=== PATIENT | female | born 1980 | race Caucasian/White ===

== ENCOUNTER 2019-12-08 12:08 | Emergency (ER) | payer OTHER ==
[~2019-12-08] VITALS: Ht 170.2 cm; Wt 54.4 kg
[~2019-12-08 12:08] MED LIST: IBUP600 PO; Percocet 5-3251 EACH PO; Valium5 MG PO
[2019-12-08 13:37] LABS: BASOPHILS ABSOLUTE AUTO 0.03 K/mm3 (0.00-0.23); BASOPHILS PERCENT AUTO 1 % (0-2); EOSINOPHILS PERCENT AUTO 0 % (0-6); Hemoglobin 13.7 g/dL (11.5-16.0); IMMATURE GRAN ABSOLUTE AUTO 0.03 K/mm3 (0.00-0.10); IMMATURE GRAN PERCENT AUTO 1 % (0-1); LYMPHOCYTES ABSOLUTE AUTO 2.33 K/mm3 (0.84-5.20); LYMPHOCYTES PERCENT AUTO 56 % (21-46); MONOCYTES ABSOLUTE AUTO 0.32 K/mm3 (0.16-1.47); MONOCYTES PERCENT AUTO 8 % (4-13); Mean Corpuscular HGB 29.9 pg (26.0-34.0); Mean Corpuscular HGB Conc 34.3 g/dL (31.5-36.5); Mean Corpuscular Volume 87 fL (80-100); NEUTROPHILS ABSOLUTE AUTO 1.46 K/mm3 (1.96-9.15); NEUTROPHILS PERCENT AUTO 35 % (41-73); RDW Coefficient Variation 14.6 % (11.7-14.2); RDW Standard Deviation 46.5 fL (35.1-46.3); Red Blood Cell Count 4.58 M/mm3 (3.80-5.20); White Blood Cell Count 4.17 K/mm3 (4.00-11.30)
[2019-12-08 13:38] LABS: Mean Platelet Volume 11.6 fL (9.1-12.4); Platelet Count 132 K/mm3 (150-400)
[2019-12-08 13:46] LABS: Alanine Aminotransfer (ALT/SGP 131 U/L (12-78); Albumin, Blood 4.3 g/dL (3.4-5.0); Albumin/Globulin Ratio 1.1 (0.8-1.8); Alk Phos 153 U/L (50-136); Anion Gap 13 mmol/L (6-16); Aspartate Aminotrans (AST/SGOT 303 U/L (12-37); Beta HCG, Quantitative, Serum <1 mIU/mL (0-3); Blood Urea Nitrogen 6 mg/dL (8-24); Bun/Creatinine Ratio 10.8 (12.0-20.0); CO2, Blood 29 mmol/L (21-32); Calcium, Blood 8.6 mg/dL (8.5-10.1); Chloride, Blood 99 mmol/L (98-108); Creatinine, Blood 0.56 mg/dL (0.40-1.00); Glomerular Filtration Rate >60 (60-); Glucose, Blood 102 mg/dL (70-99); Magnesium, Blood 2.1 mg/dL (1.6-2.4); Potassium, Blood 2.7 mmol/L (3.5-5.5); Sodium, Blood 141 mmol/L (136-145); Total Protein, Blood 8.3 g/dL (6.4-8.2)
[2019-12-08 14:10] LABS: Ethanol (Alcohol), Blood, Med 368 mg/dL
[2019-12-08 14:10] LABS: U Amphetamine Screen Not Detected; U Barbituate Screen Not Detected; U Benzodiazapine Screen Not Detected; U Buprenorphine Screen Not Detected; U Cannabinoids Screen DETECTED; U Cocaine Screen Not Detected; U Methadone Screen Not Detected; U Methamphetamine Screen Not Detected; U Opiates Screen Not Detected; U Oxycodone Screen Not Detected; U Phencyclidine Screen Not Detected; U Propoxyphene Screen Not Detected
[2019-12-08] MEDS ORDERED: Ativan1 MG SL (14:53)
[2019-12-08] MEDS ORDERED: ONDA4ODT SL (14:53)
[2019-12-11 01:10] LABS: HBSAG SCREEN Negative (Negative); HEP A AB, IGM Negative (Negative); HEP B CORE AB, IGM Negative (Negative); HEP C VIRUS AB 0.1 (0.0-0.9)
== END 2019-12-08 17:06 | disposition home or self-care (01) ==
LOC: ER 12:08
PROVIDERS: Emergency Medicine
DX: F10.10 Alcohol abuse, uncomplicated (principal); K75.9 Inflammatory liver disease, unspecified; Z71.41 Alcohol abuse counseling and surveillance of alcoholic; Z91.013 Allergy to seafood; Z79.899 Other long term (current) drug therapy; Z87.891 Personal history of nicotine dependence
CPT/HCPCS: 36415; 80053; 80074; 83735; 84702; 85025; 96365; 96366; 96375; 96376; 99285-25; G0480; J2060; J2405; J3411; J3475; J7030; J7042

== ENCOUNTER 2020-02-04 05:29 | Inpatient (IN) | payer OTHER ==
[~2020-02-04] VITALS: Ht 167.6 cm; Wt 53.2 kg
[~2020-02-04 05:29] MED LIST changes: +Ativan1 MG SL; +ONDA4ODT SL
[2020-02-04 06:55] LABS: BASOPHILS ABSOLUTE AUTO 0.03 K/mm3 (0.00-0.23); BASOPHILS PERCENT AUTO 1 % (0-2); EOSINOPHILS ABSOLUTE AUTO 0.04 K/mm3 (0.00-0.68); EOSINOPHILS PERCENT AUTO 1 % (0-6); Hematocrit 39.8 % (33.0-51.0); Hemoglobin 13.5 g/dL (11.5-16.0); IMMATURE GRAN ABSOLUTE AUTO 0.02 K/mm3 (0.00-0.10); IMMATURE GRAN PERCENT AUTO 0 % (0-1); LYMPHOCYTES ABSOLUTE AUTO 1.98 K/mm3 (0.84-5.20); LYMPHOCYTES PERCENT AUTO 31 % (21-46); MONOCYTES ABSOLUTE AUTO 0.48 K/mm3 (0.16-1.47); MONOCYTES PERCENT AUTO 8 % (4-13); Mean Corpuscular HGB 32.3 pg (26.0-34.0); Mean Corpuscular HGB Conc 33.9 g/dL (31.5-36.5); Mean Corpuscular Volume 95 fL (80-100); Mean Platelet Volume 12.9 fL (9.1-12.4); NEUTROPHILS ABSOLUTE AUTO 3.78 K/mm3 (1.96-9.15); NEUTROPHILS PERCENT AUTO 60 % (41-73); Platelet Count 62 K/mm3 (150-400); RDW Coefficient Variation 13.3 % (11.7-14.2); RDW Standard Deviation 46.9 fL (35.1-46.3); Red Blood Cell Count 4.18 M/mm3 (3.80-5.20); White Blood Cell Count 6.33 K/mm3 (4.00-11.30)
[2020-02-04 07:05] LABS: Source, Urine Clean Catch
[2020-02-04 07:05] LABS: Calcium, Ionized (POC) 1.15 mmol/L (1.10-1.46); Chloride (POC) 98 mmol/L (98-108); Creatinine (POC) 0.5 mg/dL (0.6-1.0); Glucose (ISTAT POC) 106 mg/dL (70-99); Hemoglobin (POC) 14.3 g/dL (12.0-16.0); Potassium (POC) 3.3 mmol/L (3.5-5.5); Sodium (POC) 137 mmol/L (135-148); Total CO2 (POC) 26 mmol/L (21-32)
[2020-02-04 07:12] LABS: Bilirubin, Urine Neg (Neg); Blood, Urine 2+ (Neg); Glucose Qualitative, Urine Neg (Neg); Ketones, Urine Neg (Neg); Leukocyte Esterase, Urine 1+ (Neg); Nitrite, Urine Neg (Neg); Protein, Urine 2+ (Neg); Specific Gravity, Urine 1.005 (1.003-1.022); Urobilinogen, Urine 3+ (Normal)
[2020-02-04 07:12] LABS: Alanine Aminotransfer (ALT/SGP 47 U/L (12-78); Albumin, Blood 3.7 g/dL (3.4-5.0); Albumin/Globulin Ratio 0.9 (0.8-1.8); Alk Phos 181 U/L (50-136); Anion Gap 9 mmol/L (6-16); Aspartate Aminotrans (AST/SGOT 132 U/L (12-37); Bilirubin, Total 3.7 mg/dL (0.1-1.0); Blood Urea Nitrogen 8 mg/dL (8-24); Bun/Creatinine Ratio 15.2 (12.0-20.0); CO2, Blood 26 mmol/L (21-32); Calcium, Blood 9.3 mg/dL (8.5-10.1); Chloride, Blood 102 mmol/L (98-108); Creatinine, Blood 0.53 mg/dL (0.40-1.00); Ethanol (Alcohol), Blood, Med <3 mg/dL; Globulin, Blood 4.2 g/dL (2.2-4.0); Glomerular Filtration Rate >60 (60-); Glucose, Blood 97 mg/dL (70-99); Potassium, Blood 3.2 mmol/L (3.5-5.5); Sodium, Blood 137 mmol/L (136-145); Total Protein, Blood 7.9 g/dL (6.4-8.2)
[2020-02-04 07:20] LABS: Thyroxine (T4) 12.2 ug/dL (4.8-13.9)
[2020-02-04 07:21] LABS: Appearance, Urine Hazy (Clear); Color, Urine Amber (P-Yellow)
[2020-02-04 07:22] LABS: Red Blood Cells, Urine 0-2 /hpf (0-2)
[2020-02-04 07:23] LABS: Bacteria Mod /hpf; Squamous Epithelial Cells Few /hpf (Few)
[2020-02-04 07:25] LABS: Acetaminophen, Random <2.0 ug/mL (10.0-30.0); Salicylate <1.7 mg/dL (2.8-20.0)
[2020-02-04 07:34] LABS: U Amphetamine Screen Not Detected; U Barbituate Screen Not Detected; U Benzodiazapine Screen DETECTED; U Buprenorphine Screen Not Detected; U Cannabinoids Screen DETECTED; U Cocaine Screen Not Detected; U Methadone Screen Not Detected; U Methamphetamine Screen Not Detected; U Opiates Screen Not Detected; U Oxycodone Screen Not Detected; U Phencyclidine Screen Not Detected; U Propoxyphene Screen Not Detected
[2020-02-04 11:03] LABS: International Normalized Ratio 1.08; Prothrombin Time Results 11.5 Sec (9.7-11.5)
[2020-02-04 13:18] LABS: Alanine Aminotransfer (ALT/SGP 56 U/L (12-78); Albumin, Blood 3.1 g/dL (3.4-5.0); Albumin/Globulin Ratio 0.8 (0.8-1.8); Alk Phos 147 U/L (50-136); Aspartate Aminotrans (AST/SGOT 114 U/L (12-37); Bilirubin, Direct 1.7 mg/dL (0.0-0.3); Bilirubin, Indirect 1.2 mg/dL (0.1-0.7); Bilirubin, Total 2.9 mg/dL (0.1-1.0); Total Protein, Blood 7.1 g/dL (6.4-8.2)
[2020-02-04 13:19] LABS: Acetaminophen, Random <2.0 ug/mL (10.0-30.0)
[2020-02-04 13:21] LABS: International Normalized Ratio 1.25; Prothrombin Time Results 13.2 Sec (9.7-11.5)
--- NOTE | 2020-02-04 18:24 | NUR ---
PATIENT TRANSFERED TO UNIT VIA GURNEY FROM ED, NO SIGNS OF ACUTE DISTRESS. PATIENT ABLE TO AMBULATE INDEPENDENTLY TO BED. PATIENT'S SIGNIFICANT OTHER AT BEDSIDE. PATIENT ON ROOM AIR, VSS. PATIENT ENDORSES VISUAL HALLUCINATIONS, SHE REPORTS SEEING A SMALL CHILD IN THE ROOM, DOES NOT APPEAR ALARMED. PATIENT'S SPOUSE ENDORSES THAT THIS IS COMPLETELY OUT OF THE NORM FOR THE PATIENT. PATIENT ENDORSES FEELING BOTHERED THAT SHE HAS BEEN UNABLE TO SLEEP SINCE LAST MONDAY. ENDORSES THAT SHE HASN'T HAD ANY ALCOHOL IN PAST 2 MONTHS, BUT THAT SHE SMOKES 1-2 BOWLS OF MARIJUANA DAILY. PATIENT'S CIWA NEGATIVE AT THIS TIME. APPEARS NEURO INTACT AT THIS TIME. PATIENT ENDORSES THAT SHE HAS HAD A POOR APPETITE FOR WEEKS, HAS LOST WEIGHT. PATIENT ENDORSES THAT SHE HAS NO PREVIOUS PSYCH HISTORY, BUT THAT HER FATHER HAS BIPOLAR. PATIENT ENDORSES SOME BIG LIFE CHANGES IN RECENT YEAR, ENGAGEMENT, SCHOOL PROGRAM AND [place].
--- NOTE | 2020-02-04 20:55 | NUR ---
AMA PT A&O X4 BUT ACTIVELY HAVING VISUAL & AUDIBLE HALLUCINATIONS. PT SEEING & HEARING CATS IN THE RM, COMMENTING ON "AW IT's SO CUTE HOW IT's SITTING THERE LIKE THAT." PT AWARE THAT CAT IS NOT REALLY IN THE RM. PT BECOMING ANXIOUS IN RM, STATING "I NEED TO LEAVE. I JUST NEED TO GET THIS STUFF OFF OF ME & GET OUT OF HERE." PT REPORTS HAVING DIFFICULTY BEING APART FROM [facility], STATING "I NEED TO BE WITH ME [facility]. HE's THE ONLY PERSON THAT'S EVER REALLY BEEN THERE FOR ME, & HE IS THE ONLY PERSON I REALLY TRUST." PT BECOMING FIDGETY & RESTLESS, FURTHER REPORTING "I NEED TO GO OUT & SMOKE. I USUALLY SMOKE 1-2 BOWLS AT NIGHT." PT MEDICATED W/ PRN IV ATIVAN PER EMAR W/ PT LESS RESTLESS, BUT THEN STATING "MY [facility] IS GOING TO COME GET ME & WE'RE GOING TO HIT THE ROAD RIGHT AWAY. IT's GETTING LATE. WE NEED TO GET HOME. I'M WORRIED ABOUT MY CATS. I NEED TO FEED THEM." CALL TO QUILL BUNCHER AND SORTER NATHALIE TO REPORT PT WISH TO LEAVE AMA, & PT ACTIVELY HALLUCINATING. PT STATES UNDERSTANDING OF RISKS OF LEAVING AMA, BUT REPORTS SHE NEEDS TO LEAVE. TELE PYSCH CONSULT REVIEWED BY QUILL BUNCHER AND SORTER W/ QUILL BUNCHER AND SORTER STATEMENT OF NO 2MD HOLD. PT REPORTS CALLING [facility] & [facility]ANCE COMING TO PICK HER UP. PT THEN LEFT AMA, ESCORTED OUT BY PCT IN WHEELCHAIR @ AP[employer]OX 2030.
== END 2020-02-04 20:30 | disposition left against medical advice (07) | DRG 894 ==
LOC: ER 05:29 → ERHOLD 05:30 → PCU 17:05
PROVIDERS: Emergency Medicine; ADMIT Hospitalist
DX: F10.139 Alcohol abuse with withdrawal, unspecified (principal); G92 Toxic encephalopathy; N39.0 Urinary tract infection, site not specified; E87.6 Hypokalemia; D69.6 Thrombocytopenia, unspecified; K70.30 Alcoholic cirrhosis of liver without ascites; Z53.29 Procedure and treatment not carried out because of patient's decision for other reasons; Z79.899 Other long term (current) drug therapy; Z87.891 Personal history of nicotine dependence
CPT/HCPCS: 36415; 80047; 80053; 80076; 81001; 81025; 82140; 83690; 83735; 84436; 84443; 85014; 85025; 85610; 87077; 87086; 87186; 93005; 93010; 96365; 96366; 96367; 96375; 96376; 99285-25; A9270; G0480; J0132; J2060; J3411; J3475; J7042; J7060; J7120; P9612; Q3014